=== PATIENT | male | born 1975 | race Caucasian/White ===

== ENCOUNTER 2018-11-26 12:01 | Emergency (ER) | payer OTHER ==
[~2018-11-26] VITALS: Ht 180.3 cm; Wt 113.4 kg
[~2018-11-26 12:01] MED LIST: OLME20TA5 PO
[2018-11-26] MEDS ORDERED: fentaNYL INJECTION 100 MCG/2 ML AMP IVP STA ×2 (12:28→14:20)
[2018-11-26 12:33] LABS: HEMOGLOBIN 17.6 G/DL (13.3-17.7); RED CELL DISTRIBUTION WIDTH 13.1 % (10.0-14.5); WHITE BLOOD COUNT 8.1 10^3/uL (4.3-11.0)
--- NOTE | 2018-11-26 12:43 | Diagnostic Imaging Report ---
INDICATION: Trauma COMPARISON: None FINDINGS: Single view of the chest demonstrate clear lungs bilaterally. The heart size is normal. There is no pneumothorax. Osseous structures are normal. IMPRESSION: No acute findings. Normal chest. Dictated by: Dictated on workstation # [id number]
[2018-11-26 13:00] LABS: ALANINE AMINOTRANSFERASE 50 U/L (0-55); ALBUMIN 4.4 GM/DL (3.2-4.5); ALKALINE PHOSPHATASE 163 U/L (40-136); BILIRUBIN,DIRECT 0.1 MG/DL (0.0-0.3); BILIRUBIN,INDIRECT 0.9 MG/DL; BUN/CREATININE RATIO 11; CALCIUM 9.7 MG/DL (8.5-10.1); CARBON DIOXIDE 17 MMOL/L (21-32); CHLORIDE 102 MMOL/L (98-107); CREATININE SERUM 0.96 MG/DL (0.60-1.30); GFR ESTIMATED > 60; GLUCOSE 343 MG/DL (70-105); POTASSIUM 4.1 MMOL/L (3.6-5.0); SODIUM 138 MMOL/L (135-145); TOTAL PROTEIN 9.2 GM/DL (6.4-8.2)
--- NOTE | 2018-11-26 13:17 | Diagnostic Imaging Report ---
PROCEDURE: CT head and CT cervical spine without contrast. TECHNIQUE: Multiple contiguous axial images were obtained through the brain and cervical spine without the use of intravenous contrast. Sagittal and coronal reformations through the cervical spine were then performed. INDICATION: Trauma. COMPARISON: None. CT HEAD: Ventricles are normal in size, shape and position. There is no midline shift or mass effect. There is no hemorrhage or evidence of acute ischemia. There is no extra-axial fluid collection. There is no skull fracture. The paranasal sinuses and mastoids are clear. IMPRESSION: Negative CT head. CT CERVICAL SPINE: Alignment is normal. There is no subluxation or fracture. No paraspinous mass is seen. There is no degeneration. Soft tissues are grossly intact. IMPRESSION: Negative CT cervical spine. Dictated by: Dictated on workstation # [id number]
[2018-11-26] MEDS ORDERED: NS 100 ML (IVPB) BAG IV ONE (13:30)
[2018-11-26] MEDS ORDERED: CATHETER FLUSH 10 ML SYR IV PRN (13:30)
[2018-11-26] MEDS ORDERED: IOHEXOL 350 MG/ML 100 ML (OMNIPAQUE 350) VIAL IV ONE (13:30)
[2018-11-26] MEDS ORDERED: RECEIVED CONTRAST (Hold Metformin) IV SCH (13:30)
--- NOTE | 2018-11-26 14:05 | NUR ---
c collar removed by Khoi Bruner at this time
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
[2018-11-26 14:19] LABS: BILIRUBIN,URINE NEGATIVE (NEGATIVE); CLARITY,URINE CLEAR; COLOR,URINE YELLOW; GLUCOSE, URINE (UA) 4+ (NEGATIVE); KETONES,URINE 3+ (NEGATIVE); LEUKOCYTE ESTERASE ,URINE NEGATIVE (NEGATIVE); NITRITE,URINE NEGATIVE (NEGATIVE); PH,URINE 6.5 (5-9); PROTEIN,URINE 1+ (NEGATIVE); UROBILINOGEN,URINE 1 MG/DL (NORMAL)
[2018-11-26] MEDS ORDERED: NS IV 500 ML 500 ML IV ONE (14:20)
[2018-11-26] MEDS ORDERED: KETOROLAC 30 MG/ML VIAL IVP STA (14:20)
--- NOTE | 2018-11-26 14:35 | NUR ---
This nurse went into pt's room to administer meds and the pt's monitor was turned off. Previous vitals lost.
[2018-11-26 14:37] LABS: BACTERIA,URINE NEGATIVE /HPF
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
[2018-11-26] MEDS ORDERED: NS IV 1000 ML 1,000 ML IV ONE (15:09)
[2018-11-26] MEDS ORDERED: HYDR-34 PO (16:28)
[2018-11-26] MEDS ORDERED: CYCL10TA9 PO (16:28)
[2018-11-26 16:35] VITALS: BP 90/59
== END 2018-11-26 16:35 | disposition home or self-care (01) ==
LOC: EDUNIT# 12:01 → ER 12:04
DX: S20.212A Contusion of left front wall of thorax, initial encounter (principal); S30.1XXA Contusion of abdominal wall, initial encounter; S10.91XA Abrasion of unspecified part of neck, initial encounter; I10 Essential (primary) hypertension; R40.2142 Coma scale, eyes open, spontaneous, at arrival to emergency department; R40.2252 Coma scale, best verbal response, oriented, at arrival to emergency department; R40.2362 Coma scale, best motor response, obeys commands, at arrival to emergency department; Z88.8 Allergy status to other drugs, medicaments and biological substances; Z98.890 Other specified postprocedural states; V43.52XA Car driver injured in collision with other type car in traffic accident, initial encounter; Y92.411 Interstate highway as the place of occurrence of the external cause
CPT/HCPCS: 36415; 70450; 71045; 71260; 72125; 74177; 80048; 80076; 80320; 81000; 83036; 85027; 86850; 86900; 86901; 93005; 93041

== ENCOUNTER → 2021-07-09 | Outpatient (CLI) | payer SELFPAY ==
[~2021-07-09] VITALS: Ht 177.8 cm; Wt 105.3 kg
[~2021-07-09] MED LIST changes: +ACETAMINOPHEN 500 MG TAB (TYLENOL) PO PRN; +CASIRIVIMAB/IMDEVIMAB 1,200 MG in NS (IVPB) 250 ML IV ONE; +CYCL10TA9 PO; +EPINEPHrine INJECTION 1 MG/ML AMP IM PRN; +HYDR-34 PO; +ONDANSETRON 4 MG/2 ML (SDV) Z0FRAN IV PRN; +diphenhydrAMINE 50 MG/ML INJ (BENADRYL) IV PRN
[2021-07-09 09:16] VITALS: BP 136/87
== END ==
LOC: INFUSION 09:18
PROVIDERS: ATTEND Nurse Practitioner Family
DX: Z23 Encounter for immunization (principal); U07.1 COVID-19

== ENCOUNTER 2023-01-12 07:17 | Day surgery (SDC) | payer OTHER ==
[2023-01-12] VITALS (10 sets, daily range): BP systolic 113–140; BP diastolic 68–96
[~2023-01-12 07:17] MED LIST changes: -ACETAMINOPHEN 500 MG TAB (TYLENOL) PO PRN; -CASIRIVIMAB/IMDEVIMAB 1,200 MG in NS (IVPB) 250 ML IV ONE; +CYCL10TA25 PO; -CYCL10TA9 PO; -EPINEPHrine INJECTION 1 MG/ML AMP IM PRN; -ONDANSETRON 4 MG/2 ML (SDV) Z0FRAN IV PRN; -diphenhydrAMINE 50 MG/ML INJ (BENADRYL) IV PRN
[2023-01-12 07:51] LABS: HEMOGLOBIN 16.4 g/dL (13.3-17.7)
[2023-01-12 07:53] LABS: MEAN PLATELET VOLUME 12.8 fL (9.0-12.2)
[2023-01-12 08:07] LABS: INR 1.1 (0.8-1.4); PROTHROMBIN TIME PATIENT 14.9 SEC (12.2-14.7)
[2023-01-12] MEDS ORDERED: NS IV 1000 ML 1,000 ML IV STA (08:17)
[2023-01-12] MEDS ORDERED: LIDOCAINE 1% INJ 30 ML (XYLOCAINE) VIAL INJ ONE (08:30)
[2023-01-12] MEDS ORDERED: MIDAZOLAM 2 MG/2 ML (VERSED) VIAL IVP ONE (08:30)
[2023-01-12] MEDS ORDERED: fentaNYL INJ 100 MCG/2 ML AMP IVP ONE (08:30)
--- NOTE | 2023-01-12 09:41 | Diagnostic Imaging Report ---
INDICATION: LIVER BX. TECHNIQUE: All CT scans use one or more of the following dose optimizing techniques: automated exposure control, MA and/or KvP adjustment based on patient size and exam type or iterative reconstruction. DETAILS OF THE PROCEDURE: The patient was brought to the CT suite and placed on the table in the supine position. Axial imaging through the abdomen was performed to evaluate for an appropriate entry site. The procedure was performed utilizing conscious sedation with Radiology nursing and constant patient monitoring. The patient was given a total of 50 mcg of fentanyl intravenously and 1 mg of Versed intravenously. The total procedure time was approximately 3 minutes. The right abdomen was prepped and draped in the usual sterile fashion. A small amount of 1% lidocaine was utilized for local anesthesia. An 18-gauge coaxial Temno needle was advanced into the right lobe of the liver. A total of 4 core biopsies was obtained. A blood patch was injected during needle removal. Hemostasis was obtained using manual compression. The patient tolerated the procedure well and left the Department in stable condition. IMPRESSION: Successful CT-guided random right lobe liver biopsy utilizing conscious sedation. Pathology results are currently pending. Dictated by: Dictated on workstation # [id number]
[2023-01-12] MEDS ORDERED: HYDROcodone/APAP 5 MG/325 MG (LORTAB) TAB PO PRN (09:45)
--- NOTE | 2023-01-12 14:36 | Pre-Op Note & Conscious Sedat ---
Pre-Operative Progress Note Date of Available H&P: Jan 12, 2023 Date H&P Reviewed: Jan 12, 2023 Time H&P Reviewed: 09:00 Pre-Op Diagnosis: elevated LFTs Moderate Sedation PreProcedure Time 09:00 ASA Score 2 Airway Lungs Heart ASA score ASA 1: a normal healthy patient ASA 2: a patient with a mild systemic disease (mid diabetes, controlled hypertension, obesity ASA 3: a patient with a severe systemic disease that limits activity (angina, COPD, prior Myocardial infarction) ASA 4: a patient with an incapacitating disease that is a constant threat to life (CHF, renal failure) ASA 5: a moribund patient not expected to survive 24 hrs. (ruptured aneurysm) ASA 6: a declared brain- patient whose organs are being harvested. For emergent operations, add the letter E after the classification Mallampati Classification Grade 2 Sedation Plan Analgesia, Amnesia, Plan communicated to team members, Discussed options with patient/fam, Discussed risks with patient/fam The patient is an appropriate candidate to undergo the planned procedure, sedation, and anesthesia. The patient immediately re-assessed prior to indication. JANNETTE TORRES MD Jan 12, 2023 14:36
== END 2023-01-12 11:29 | disposition home or self-care (01) ==
LOC: RAD 07:17
PROVIDERS: ATTEND Pediatrics
DX: K74.60 Unspecified cirrhosis of liver (principal); E11.9 Type 2 diabetes mellitus without complications; N52.9 Male erectile dysfunction, unspecified; R79.89 Other specified abnormal findings of blood chemistry; Z79.84 Long term (current) use of oral hypoglycemic drugs; Z79.85 Long-term (current) use of injectable non-insulin antidiabetic drugs; Z28.310 Unvaccinated for COVID-19
CPT/HCPCS: 36415; 77012; 85027; 85610; 85730; 88307; 88313; 99156